=== PATIENT | male | born 1965 | race Caucasian/White ===

== ENCOUNTER 2023-07-26 14:24 | Emergency (ER) | payer OTHER, SELFPAY ==
[2023-07-26 14:25] VITALS: BP 195/130; PULSE 86; RESP 16; TEMP 36.1; O2SAT 99; BMI 37.0
--- NOTE | 2023-07-26 15:28 | EDS_ITS ---
HPI <GERRI Bruno - Last Filed: 07/26/23 16:13> History of Present Illness Chief Complaint: Anand C/O Narrative Narrative: Patient is a 57-year-old male with history of suprapubic catheter, urethral stricture, chronic kidney disease, history of ACS with triple bypass 2 months ago. Patient is presenting to the emergency department with dislodged suprapubic catheter. Patient had this catheter placed 2 months ago secondary to urethral stricture. Patient does not use it, patient states he does still continue to urinate through his urethra. Patient is just concerned because I did place this at [place] and would like it placed back. Patient denies any significant pain fever or chills. PFS <GERRI Bruno - Last Filed: 07/26/23 16:13> [facility] Medical History (Updated 07/26/23 @ 16:13 by GERRI Bruno) Acute on chronic systolic (congestive) heart failure Anemia in chronic kidney disease Arteriosclerosis Atherosclerosis of coronary artery of [place] heart without angina pectoris Cardiac arrest with ventricular fibrillation Chronic kidney disease, stage 5 Essential hypertension FSGS (focal segmental glomerulosclerosis) Interstitial fibrosis present on renal biopsy Nephrotic syndrome Polymorphic ventricular tachycardia Postoperative atrial fibrillation Renal dysfunction Secondary hyperparathyroidism, not elsewhere classified Suprapubic catheter Urethral stricture Home Medications allopurinol 100 mg tablet 100 mg PO DAILY 07/14/23 [History Last Taken Unknown] atorvastatin 40 mg tablet 40 mg PO QHS 07/14/23 [History Last Taken Unknown] calcitriol 0.5 mcg capsule 0.5 mcg PO DAILY 07/14/23 [History Last Taken Unknown] carvedilol 6.25 mg tablet 6.25 mg PO BID 07/14/23 [History Last Taken Unknown] furosemide 40 mg tablet 40 mg PO BID 07/14/23 [History Last Taken Unknown] hydralazine 50 mg tablet 50 mg PO TID 07/14/23 [History Last Taken Unknown] [id number] 300 mcg-K 60 mcg-lycop 600 mcg-lutein 300 mcg tablet (Centrum Silver Men) 1 tab PO DAILY 07/14/23 [History Last Taken Unknown] Allergy/AdvReac Type Severity Reaction Status Date / Time Penicillins Allergy Unknown PT UNSURE Verified 07/26/23 14:25 OF REACTION tetracycline Allergy Unknown Shortness Verified 07/26/23 14:25 of breath Surgical History (Updated 07/15/23 @ 11:18 by Debbie Strong) History of coronary artery bypass surgery (05/25/23) History of left heart catheterization (05/20/23) Social History (Updated 07/14/23 @ 16:17 by Debbie Strong) Smoking Status: Never smoker alcohol intake: never substance use type: does not use ROS <GERRI Bruno - Last Filed: 07/26/23 16:13> ROS ED ROS Narrative Constitutional: Negative for fever, chills, weight loss, weakness Eyes: Negative for vision loss, vision change, double vision ENT: Negative for any sore throat, ear pain, congestion Cardiovascular: Negative for any chest pain, tightness, palpitations Respiratory: Negative for any cough, sputum production, hemoptysis, dyspnea, dyspnea on exertion, orthopnea Gastrointestinal: Negative for any abdominal pain, nausea, vomiting, diarrhea, constipation, blood in stool, blood in vomit : Negative for any urinary frequency, dysuria, retention, blood in urine. Positive for dislodged suprapubic catheter Muscle skeletal: Negative for any myalgias, arthralgias, neck pain, back pain Neurological: Negative for any headache, syncope, paresthesias, dizziness Skin: Negative for any rashes, lumps, itching, abrasions, lacerations Psychiatric: Negative for any depression, anxiety, stress, suicidal ideation, homicidal ideation Hematologic: Negative for any easy bruising, excessive bruising, easy bleeding Allergies: Negative for any eczema, hives, rash EXAM <GERRI Bruno - Last Filed: 07/26/23 16:13> Physical Exam Narrative Exam Narrative: Vital signs reviewed. HEET: Head normocephalic atraumatic, TMs clear bilaterally. Posterior pharynx is clear, moist mucous membranes. Nares clear bilaterally. Neck: Supple with no lymphadenopathy or tenderness. No signs of meningismus. Cardiac: Regular rate and rhythm no murmurs gallops or rubs, equal peripheral pulses bilaterally. Respiratory: Lungs clear to auscultation bilaterally. No chest tenderness. Abdomen: Soft, nontender, nondistended. No abdominal bruit or pulsatile masses. No hepatosplenomegaly. Fresh looking stoma. From suprapubic catheter. Active bowel sounds in all quadrants. Negative for any peritoneal signs. Extremities: No peripheral edema, no signs of gross trauma or deformity. Active full range of motion of all extremities. Neuro: Cranial nerves II through XII intact, no focal neurological deficits. Skin: Clean dry and intact with no rash, purpura, petechiae, vesicles or pustules. Backs/flank: No CVA tenderness, no midline spinal tenderness, no deformity. Psych: Normal mood and affect. No SI, HI or acute psychosis. Const Vital Signs: 07/26/23 14:25 Temperature 97 F L Temperature Source Temporal Pulse Rate 86 Respiratory Rate 16 Blood Pressure 195/130 H Blood Pressure Mean 151 Pulse Ox 99 Oxygen Delivery Method Room Air <Dr. Cayden Dye DO - Last Filed: 07/26/23 16:20> Physical Exam Const Vital Signs: 07/26/23 14:25 Temperature 97 F L Temperature Source Temporal Pulse Rate 86 Respiratory Rate 16 Blood Pressure 195/130 H Blood Pressure Mean 151 Pulse Ox 99 Oxygen Delivery Method Room Air MDM <GERRI Bruno - Last Filed: 07/26/23 16:13> [facility] Treatment and Re-Evaluation :: Patient appears generally well, patient appears nontoxic, vital signs are stable. Presenting to the emergency department with complaints of dislodged abdominal suprapubic catheter. Area appears nontoxic. Patient will need to have this placed. I did look around the hospital for a true suprapubic catheter however we are unable to find 1. Patient will have a 14 [place] Anand catheter placed. I was able to obtain a 14 Estonian catheter, area was cleansed, I was able to attempt to place in a 14 Estonian catheter in the suprapubic hole. Unfortunately the track was unable to be found. We were unable to successfully place a suprapubic catheter. At this time, I will reach out to their patient's urologist for further evaluation is in no distress. With urology at [place], I made them aware that the suprapubic catheter is not in place. They will reach out to him and have an appoint with him later in the end of the week. I spoke with this patient telling him what was told from the urology office. He is given strict return precaution to return for any worsening pain, difficulty urinating fever chills nausea vomiting. However patient does urinate via the urethra so this should not be an issue. Patient will also be given urology here for follow-up. He is happy with the plan of care all questions answered stable for discharge <Dr. Cayden Dye, DO - Last Filed: 07/26/23 16:20> [facility] Treatment and Re-Evaluation :: Patient appears generally well, patient appears nontoxic, vital signs are stable. Presenting to the emergency department with complaints of dislodged abdominal suprapubic catheter. Area appears nontoxic. Patient will need to have this placed. I did look around the hospital for a true suprapubic catheter however we are unable to find 1. Patient will have a 14 [place]ian Anand catheter placed. I was able to obtain a 14 Estonian catheter, area was cleansed, I was able to attempt to place in a 14 Estonian catheter in the suprapubic hole. Unfortunately the track was unable to be found. We were unable to successfully place a suprapubic catheter. At this time, I will reach out to their patient's urologist for further evaluation is in no distress. With urology at [place], I made them aware that the suprapubic catheter is not in place. They will reach out to him and have an appoint with him later in the end of the week. I spoke with this patient telling him what was told from the urology office. He is given strict return precaution to return for any worsening pain, difficulty urinating fever chills nausea vomiting. However patient does urinate via the urethra so this should not be an issue. Patient will also be given urology here for follow-up. He is happy with the plan of care all questions answered stable for discharge I have personally performed a face to face assessment of the patient and have reviewed the CLAUDIA Note. I performed a substantive portion of the visit including all aspects of the following. My foster findings include: History is 57-year-old male has a suprapubic catheter due to urethral stricture. Patient states he has been urinating normally. He is also doing dialysis and sees urology and nephrology [place]. He states he supposed to see his team the next couple weeks and was in a talk about discontinuing the suprapubic catheter as he does not feel he needs it. He states the catheter has been out for couple of hours. The catheter itself was inspected and appears to have a hole in the balloon. Exam is there is a stoma in the suprapubic region. There is no surrounding cellulitic changes. No obvious infectious changes noted. Medical Decison Making attempt to place a 14 catheter was met with resistance at the level of the muscle belly. Patient and his states that there was significant problems changing over guidewire last time he had it changed. Therefore we did not press the issue. Will reach out to his team in [place]. Discharge Plan Triage Chief Complaint: Anand C/O ED Midlevel Provider: Jeancarlos Hernandez ED Provider: Cayden Dye Dx/Rx/DC Orders Clinical Impression: Suprapubic catheter dysfunction, Suprapubic catheter Instructions: Dysuria, Apheresis Catheter Dc Prescriptions: No Action atorvastatin 40 mg tablet 40 mg PO QHS furosemide 40 mg tablet 40 mg PO BID carvedilol 6.25 mg tablet 6.25 mg PO BID Rx Instructions: must administer with a meal/food allopurinol 100 mg tablet 100 mg PO DAILY calcitriol 0.5 mcg capsule 0.5 mcg PO DAILY Centrum Silver Men [phone] mcg tablet 1 tab PO DAILY hydralazine 50 mg tablet 50 mg PO TID Primary Care Provider: Care Physician,No Primary Referrals: Devon Nunez MD [Med Staff - Active Staff] - Care Physician,No Primary [Primary Care Provider] - Activity Restrictions/Additional Instructions: Please make sure you follow-up with urology in [place]. Please return here if you are having any difficulty urinating. Fever chills, please return here. Disposition Disposition: Home, Self Care
== END 2023-07-26 16:41 | disposition home or self-care (01) ==
PROVIDERS: Emergency Provider Emergency Medicine; Visit Provider Emergency Medicine
DX: T83.021A Displacement of indwelling urethral catheter, initial encounter (principal); N18.5 Chronic kidney disease, stage 5; I12.0 Hypertensive chronic kidney disease with stage 5 chronic kidney disease or end stage renal disease; D63.8 Anemia in other chronic diseases classified elsewhere; I25.10 Atherosclerotic heart disease of native coronary artery without angina pectoris; Z95.1 Presence of aortocoronary bypass graft; Y73.8 Miscellaneous gastroenterology and urology devices associated with adverse incidents, not elsewhere classified
CPT/HCPCS: 99282

== ENCOUNTER → 2025-06-20 | Outpatient (CLI) | payer OTHER, MEDICARE, SELFPAY ==
--- NOTE | 2025-06-20 12:44 | ECHOD_ITS ---
Reason For Study : Endocarditis Procedure This was a 2D Doppler, Color Flow transthoracic echocardiogram. Exam performed in department. Left Ventricle Normal LV size. Sigmoid septum. The left ventricular ejection fraction is 55 %. No regional wall motion abnormalities noted. Right Ventricle Normal RV size. Normal systolic function. Atria The left atrium is severely enlarged. The right atrium is moderately enlarged. Mitral Valve Bileaflet diffuse mitral valve thickening. Mild-Moderate (1-2+) eccentric mitral valve insufficiency. Tricuspid Valve Normal tricuspid valve. Moderate (2+) tricuspid valve insufficiency. Pulmonary artery systolic pressure is 52 mmHg. Moderate pulmonary hypertension. Aortic Valve Trisinus/trileaflet aortic valve. Moderate focal aortic valve calcification. Peak aortic valve gradient 39 mmHg. Mean aortic valve gradient 19 mmHg. Mild aortic stenosis. Mild-Moderate (1-2+) aortic valve insufficiency. Pulmonic Valve Normal pulmonic valve. Great Vessels Normal aortic root. The pulmonary artery is normal size. Inferior vena cava collapse with respiration. Pericardium/Pleural No pericardial effusion. MMode/2D Measurements & Calculations LVIDd: 6.1 cm IVSd: 1.4 cm LVOT diam: 2.5 cm LVIDs: 4.6 cm LVPWd: 0.95 cm LVOT area: 4.8 cm2 RVDd: 4.5 cm FS: 25.1 % Ao root diam: 4.0 cm LAV(MOD-bp): 116.4 ml LVAd ap4: 49.0 cm2 LAV(MOD-bp) Indexed: 48.7 ml/m2 LVLd ap4: 9.8 cm LAV(MOD-sp2): 112.8 ml EDV(MOD-sp4): 206.1 ml LAV(MOD-sp4): 114.0 ml EDV(sp4-el): 208.4 ml LVAs ap4: 32.4 cm2 LVLs ap4: 9.2 cm ESV(MOD-sp4): 97.8 ml ESV(sp4-el): 97.4 ml EF(MOD-sp4): 52.5 % EF(sp4-el): 53.3 % SV(MOD-sp4): 108.3 ml SV(sp4-el): 111.0 ml Ao sinus diam: 3.4 cm SI(MOD-sp4): 45.3 ml/m2 Ao ST Junction: 3.0 cm LA A4 area: 31.2 cm2 LA dimension(2D): 5.5 cm RA A4 area: 29.8 cm2 Time Measurements MV dec time: 0.15 sec Doppler Measurements & Calculations MV E max deo: 126.4 cm/sec Lat Peak E' Deo: 11.4 cm/sec Med Peak E' Deo: 6.6 cm/sec MV A max deo: 36.1 cm/sec E/E' lat: 11.1 E/E' med: 19.0 MV E/A: 3.5 MV V2 max: 133.4 cm/sec MV P1/2t max deo: 135.9 cm/sec Ao V2 max: 313.2 cm/sec MV max P.1 mmHg MV P1/2t: 59.1 msec Ao max P.2 mmHg MV V2 mean: 70.2 cm/sec MV dec slope: 673.2 cm/sec2 Ao V2 mean: 201.7 cm/sec MV mean P.5 mmHg Ao mean P.1 mmHg MV V2 VTI: 34.2 cm MVA(P1/2t): 3.7 cm2 Ao V2 VTI: 69.4 cm MVA(VTI): 3.7 cm2 AV (velocity ratio): 0.38 TERRA(I,D): 1.8 cm2 TERRA(V,D): 1.7 cm2 LV V1 max: 108.4 cm/sec MR max deo: 568.8 cm/sec SV(LVOT): 127.3 ml LV V1 max P.7 mmHg MR max P.4 mmHg LV V1 mean P.6 mmHg MR mean deo: 430.1 cm/sec LV V1 mean: 76.2 cm/sec MR mean P.5 mmHg LV V1 VTI: 26.4 cm MR VTI: 198.6 cm PA V2 max: 105.0 cm/sec TR max deo: 345.7 cm/sec TR max P.8 mmHg ECHO/Echo Complete Interpretation Summary Normal LV size. The left ventricular ejection fraction is 55 %. Mild-Moderate (1-2+) eccentric mitral valve insufficiency. The left atrium is severely enlarged. The right atrium is moderately enlarged. Pulmonary artery systolic pressure is 52 mmHg. Moderate pulmonary hypertension. Mean aortic valve gradient 19 mmHg. Mild-Moderate (1-2+) aortic valve insufficiency. Ordering Physician: Davion Lucero Referring Physician: Davion Lucero Performed By: Mike Santoyo RCS
== END | disposition home or self-care (01) ==
LOC: CVS 12:42
PROVIDERS: Referring Provider Internal Medicine Cardiovascular Disease; Visit Provider Internal Medicine Cardiovascular Disease
DX: I35.8 Other nonrheumatic aortic valve disorders (principal)
CPT/HCPCS: 93306